=== PATIENT | male | born 1985 | race Caucasian/White ===

== ENCOUNTER → 2021-08-12 | Outpatient (CLI) | payer OTHER ==
[~2021-08-12] MED LIST: BACTRIM DS TAB1 EACH PO; BENTYL 20MG TAB20 MG PO; CLARITIN10 MG PO; FLONASE 0.05% N16 GM; KEFLEX CAP 500500 MG PO; LODINE CAP 300300 MG PO; PREDNISONE 50 M50 MG PO; SUDAFED 60 MG T60 MG PO; ZOFRAN ODT 4 MG4 MG PO
== END ==
LOC: EXRD 11:38
DX: R79.82 Elevated C-reactive protein (CRP) (principal); M25.50 Pain in unspecified joint
CPT/HCPCS: 73130

== ENCOUNTER → 2021-09-03 | Outpatient (CLI) | payer OTHER | LOC: EXRD 12:46 | DX: J32.9 Chronic sinusitis, unspecified (principal); R76.8 Other specified abnormal immunological findings in serum; R05.9 Cough, unspecified | CPT/HCPCS: 70220; 71046 ==

== ENCOUNTER 2022-03-05 14:11 | Emergency (ER) | payer OTHER ==
[2022-03-05 14:48] LABS: HEMOGLOBIN 14.8 gm/dl (14.0-17.5); RED BLOOD COUNT 5.29 M/UL (4.20-5.50); WHITE BLOOD COUNT 15.7 K/UL (4.5-11.0)
[2022-03-05 15:18] LABS: BUN/CREATININE RATIO 21 (0-10)
[2022-03-05] MEDS ORDERED: ZITHROMAX250 MG PO (20:30)
[2022-03-05] MEDS ORDERED: MOBIC7.5 MG PO (20:30)
== END 2022-03-05 20:35 | disposition home or self-care (01) ==
LOC: ER1 14:11
PROVIDERS: Physician Assistant
DX: R07.89 Other chest pain (principal); D72.829 Elevated white blood cell count, unspecified; E11.9 Type 2 diabetes mellitus without complications; K21.9 Gastro-esophageal reflux disease without esophagitis; F17.210 Nicotine dependence, cigarettes, uncomplicated
CPT/HCPCS: 71045; 80053; 82550; 82553; 84484; 85025; 93005; 99285